=== PATIENT | female | born 1955 | race Caucasian/White ===

== ENCOUNTER 2024-07-23 08:46 | Emergency (ER) | payer BC ==
[~2024-07-23] VITALS: Ht 177.8 cm; Wt 99.8 kg
[2024-07-23 08:57] VITALS: PULSE 75; RESP 20; TEMP 98.3; O2SAT 98
[2024-07-23] MEDS ORDERED: DIPHTH,PERTUSS(ACELL),TET VAC 0.5 ML VIAL (Tdap) I.M. ONE (09:00)
[2024-07-23] MEDS ORDERED: BACITRACIN 1 GM OINT TP ONE (09:00)
== END 2024-07-23 09:48 | disposition home or self-care (01) ==
LOC: SED 08:46
DX: S01.112A Laceration without foreign body of left eyelid and periocular area, initial encounter (principal); Z23 Encounter for immunization; W18.39XA Other fall on same level, initial encounter; Y93.89 Activity, other specified; Y92.89 Other specified places as the place of occurrence of the external cause; Y99.8 Other external cause status
CPT/HCPCS: 90715; 99283